=== PATIENT | male | born 1960 | race Caucasian/White ===

== ENCOUNTER 2020-09-20 18:01 | Emergency (ER) | payer MEDICAID ==
[~2020-09-20] VITALS: Ht 165.1 cm; Wt 68.0 kg
[2020-09-20 20:54] LABS: CHLORIDE 97 mEq/L (98-107); HEMOGLOBIN. 14.8 g/dL (14.0-18.0); MEAN CORPUSCULAR HEMOGLOBIN 30.6 pg (28.0-32.0); MEAN PLATELET VOLUME 9.1 fl (7.4-10.4); PLATELET 209 x1000/uL (130-400); RED BLOOD CELL COUNT 4.84 mill/uL (4.7-6.1); RED CELL DISTRIBUTION WIDTH 12.6 % (11.6-14.6)
[2020-09-20 21:23] LABS: PLATELET ESTIMATE NORMAL
[2020-09-20 21:40] VITALS: BP 129/76
== END 2020-09-21 00:05 | disposition home or self-care (01) ==
LOC: ER 18:01
DX: Z20.818 Contact with and (suspected) exposure to other bacterial communicable diseases (principal); R53.83 Other fatigue
CPT/HCPCS: 36415; 71045; 80053; 85025; 93005; 99285